=== PATIENT | female | born 1955 | race Caucasian/White ===

== ENCOUNTER 2017-04-26 10:26 | Emergency (ER) | payer MEDICARE, OTHER ==
[2017-04-26 10:34] VITALS: BMI 28.1
--- NOTE | 2017-04-26 11:23 | PDOC ---
History of Present Illness - General Chief Complaint: Pain, Acute Stated Complaint: Flank pain, nausea, possible kidney stones Time Seen by Provider: 04/26/17 10:48 - History of Present Illness Initial Comments: 04/26/17 11:15 Pt is a 62 y/o F with PMH kidney stones (Lithotripsy and L ureteral stent 10/16/16 ), who presents with left flank pain. Pain began at 2am today, is constant, pressure-like, radiates to the anterior pelvis and left leg (tingling in the leg ) and is associated with sweating and chills today. Pt states she's had blood in her urine for 2 weeks. She had an appointment with her allergy doctor today and inteded to ask about the blood, but this morning she developed intense pain prompting her to come to the ED instead. Denies vomiting, diarrhea, chest pain, sob, fever. Last BM this morning. Nonbloody. Other medical history: Asthma, Glaucoma, Depression, paravertebral cyst (MRI at [facility] last month), hysterectomy, sleeve gastrectomy 2014, cholecystectomy, basal cell CA resection from right nose, lipoma resection. Pt saw Dr. Chemo Choi for kidney stones in the past. Past History - Past Medical History Allergies/Adverse Reactions: Allergies Allergy/AdvReac Type Severity Reaction Status Date / Time iodine Allergy Mild Rash Verified 04/26/17 10:34 Penicillins Allergy Difficulty Verified 04/26/17 10:34 Breathing Home Medications: Ambulatory Orders Duloxetine [Cymbalta -] 60 mg PO DAILY 02/18/15 Apremilast [Otezla] 30 mg PO DAILY 04/26/17 Lorazepam [Ativan] 0.5 mg PO PRN 04/26/17 Anemia: No Asthma: Yes Cancer: Yes (SKIN W/ RECONSTRUCTION) Cardiac Disorders: No CVA: No COPD: No CHF: No Dementia: No Diabetes: No GI Disorders: Yes (REFLUX, ABD. PAIN;DIVERTICULOSIS) Disorders: Yes (KIDNEY STONE) HTN: No Hypercholesterolemia: No Kidney Stones: Yes Liver Disease: No Psychiatric Problems: Yes (Depression) Seizures: No Thyroid Disease: No Other medical history: RA, Sleep Apnea,Fibromyalgia - Surgical History Abdominal Surgery: Yes (GASTRIC SLEEVE - 2012) Appendectomy: No Cardiac Surgery: No Cholecystectomy: Yes Lung Surgery: No Neurologic Surgery: No Orthopedic Surgery: No - Suicide/Smoking/Psychosocial Hx Smoking Status: No Smoking History: Never smoked Have you smoked in the past 12 months: No Number of Cigarettes Smoked Daily: 0 Information on smoking cessation initiated: No Hx Alcohol Use: No Drug/Substance Use Hx: No Substance Use Type: None, Prescribed Hx Substance Use Treatment: No Review of Systems - Review of Systems Able to Perform ROS?: Yes Is the patient limited [place] proficient: No Constitutional: Yes: Symptoms Reported, Chills, Diaphoresis. No: Fever, Malaise , Night Sweats HEENTM: Yes: Symptoms Reported. No: Blurred Vision, Ear Discharge, Throat Pain , Throat Swelling Respiratory: Yes: Symptoms reported. No: Cough, Shortness of Breath, Stridor, Wheezing, Productive cough Cardiac (ROS): Yes: Symptoms Reported, Edema (pt states she chronically has swelling in her legs, which has been worked up by her primary doctor). No: Chest Pain ABD/GI: Yes: Symptoms Reported, Nausea. No: Constipated, Diarrhea, Vomiting, Indigestion : Yes: Flank Pain (since 2am), Hematuria (2 weeks). No: Burning, Dysuria, Discharge, Incontinence *Physical Exam - Vital Signs Last Vital Signs Temp Pulse Resp BP Pulse Ox 97.6 F 63 17 125/69 100 04/26/17 10:30 04/26/17 10:30 04/26/17 10:30 04/26/17 10:30 04/26/17 10:30 - Physical Exam General Appearance: Yes: Nourished, Appropriately Dressed, Apparent Distress ( in pain) HEENT: positive: EOMI, GEOFFREY, Normal ENT Inspection, Normal Voice, Symmetrical Neck: positive: Supple. negative: Tender Respiratory/Chest: positive: Lungs Clear, Normal Breath Sounds. negative: Chest Tender, Respiratory Distress Cardiovascular: positive: Regular Rhythm, Regular Rate, S1, S2 Vascular Pulses: Dorsalis-Pedis (R): 2+, Doralis-Pedis (L): 2+ Gastrointestinal/Abdominal: positive: Tender (diffusely, kristopher LUQ), Decreased BS , Rebound, Tenderness. negative: Distended, Guarding, Hernia, Mass, Hepatomegaly, Spleenomegaly Musculoskeletal: positive: Normal Inspection, CVA Tenderness (L). negative: CVA Tenderness (R) Extremity: positive: Normal Inspection, Normal Range of Motion, Pelvis Stable. negative: Swelling, Calf Tenderness, Erythema, Inflammation ED Treatment Course - LABORATORY CBC & Chemistry Diagram: 04/26/17 11:52 04/26/17 11:52 Medical Decision Making - Medical Decision Making 04/26/17 11:27 Pt is a 62 F with PMH kidney stones who presents to ED with intense L flank pain and hematuria. Plan -CBC -CMP -Morphine -UA -U/S abdomen -Tamsulosin -Morphine -NS 04/26/17 12:32 CBC unremarkable 04/26/17 12:40 Pt back from U/S. Still in pain -morphine 04/26/17 13:38 U/S significant for L hydronephrosis, and calculi (0.8cm in renal pelvis, and up to 0.9 in lower pole of kidney). Ao normal caliber. labs significant for alk phos 127. UA pos for blood, ketones, wbcs, rbc 04/26/17 14:49 Pt complaining of epigastric pain -EKG -maalox -famotidine 04/26/17 17:07 Pt is much improved. Stable for discharge *DC/Admit/Observation/Transfer Diagnosis at time of Disposition: Hydronephrosis Qualifiers: Hydronephrosis type: with renal calculous obstruction Qualified Code(s): N13.2 - Hydronephrosis with renal and ureteral calculous obstruction - Discharge Dispostion Disposition: HOME Admit: No - Referrals Referrals: Jimbo Vines MD [Staff Physician] - - Patient Instructions Printed Discharge Instructions: DI for Kidney Stones Additional Instructions: Please make sure you follow up with your Urologist. Please take all your prescription medications as directed. If your symptoms get worse or if you develop new symptoms, please return to the emergency department. - Post Discharge Activity
[2017-04-26] MEDS ORDERED: KETOROLAC TROMETHAMINE 15 MG/ML VIAL IVPUSH ONE (11:30)
[2017-04-26] MEDS ORDERED: SODIUM CHLORIDE 1,000 ML IV STA (11:35)
--- NOTE | 2017-04-26 11:36 | PDOC ---
Attending Attestation - Resident Resident Name: SuziemainorDelta - ED Attending Attestation I have performed the following: I have examined & evaluated the patient, The case was reviewed & discussed with the resident, I agree w/resident's findings & plan, Exceptions are as noted - HPI HPI: 04/26/17 14:33 62y F hx of kidney stones presents with a few days of intermittent L sided flank pain. Pt also endorses mild epgiastric pain and nausea since this morning. no associated fever/chills, hematmeiss, dysuria, sob. pot ntotes her flakn pain is similar to her kidney stones in the past. on exam the pt appeasrs in mild distress due to her discomfort her abd is soft, nontender cardiac exam reveals rrr, no m/r/g suspect kidney stones susuepct her epgiastric discomfort is due to nausea from the kidney stones, but will obtain ekg to screen for acs - Physicial Exam PE: 04/26/17 17:37 see above - Medical Decision Making 04/26/17 17:36 pt feeling improved at discharge will [facility] with return precutions including fever, back pain, persistent vomitin gor other concerns. I discussed the physical exam findings, ancillary test results and final diagnoses with the patient. I answered all of the patient's questions. The patient was satisfied with the care received and felt comfortable with the discharge plan and treatment plan. The patient will call their primary care physician within 24 hours to arrange follow-up and will return to the Emergency Department with any new, persistent or worsening symptoms. Heart Score/ECG Review - ECG Impressions Comment:: 04/26/17 15:16 Twelve-lead EKG was performed and reviewed by me. There is normal sinus rhythm with a normal rate. Rate of 92 The axis is normal. The intervals are normal. There is normal R wave progression There are no ST or T wave abnormalities. Impression: Normal twelve-lead EKG
[2017-04-26] MEDS ORDERED: KETOROLAC TROMETHAMINE 15 MG/ML VIAL ONE (11:38)
[2017-04-26] MEDS ORDERED: ONDANSETRON 4 MG/2 ML VIAL IVPUSH ONE (11:42)
[2017-04-26 12:14] LABS: BASO % 0.4 % (0-2.0); EOS % 0.2 % (0-4.5); HEMATOCRIT 39.1 % (32.4-45.2); HEMOGLOBIN 12.5 GM/dL (10.7-15.3); LYMPH % 8.2 % (8-40); MCH 28.4 pg (25.7-33.7); MEAN CELL VOLUME 88.6 fl (80-96); MEAN PLT VOLUME 7.9 fl (7.5-11.1); MONO % 3.3 % (3.8-10.2); NEUT % 87.9 % (42.8-82.8); PLATELET COUNT 317 K/MM3 (134-434); RBC 4.41 M/mm3 (3.60-5.2); WHITE BLOOD COUNT 7.1 K/mm3 (4.0-10.0)
[2017-04-26 12:29] LABS: URINE APPEARANCE TURBID; URINE BILIRUBIN NEGATIVE (NEGATIVE); URINE BLOOD 3+ (NEGATIVE); URINE COLOR AMBER; URINE GLUCOSE (UA) NEGATIVE (NEGATIVE); URINE KETONE 1+ (NEGATIVE); URINE NITRITE NEGATIVE (NEGATIVE); URINE UROBILINOGEN NEGATIVE mg/dL (0.2-1.0)
[2017-04-26 12:39] LABS: ALBUMIN 3.7 g/dl (3.4-5.0); ANION GAP 10 (8-16); BLOOD UREA NITROGEN 12 mg/dL (7-18); CALCIUM 9.5 mg/dL (8.5-10.1); CHLORIDE 103 mmol/L (98-107); CO2 27 mmol/L (21-32); GLUCOSE,RANDOM 125 mg/dL (74-106); POTASSIUM 4.4 mmol/L (3.5-5.1); SODIUM 140 mmol/L (136-145)
[2017-04-26] MEDS ORDERED: morphine CARPU-JECT 4 MG/1 ML DISP.SYRIN IVPUSH ONE (12:39)
[2017-04-26 12:42] LABS: ALK PHOS 127 U/L (45-117); BILIRUBIN,TOTAL 0.7 mg/dL (0.2-1.0); CREATININE 0.7 mg/dL (0.55-1.02); SGOT/AST 23 U/L (15-37); SGPT/ALT 33 U/L (12-78)
[2017-04-26 12:44] LABS: URINE LEUK ESTERASE 1+ (NEGATIVE); URINE PROTEIN 2+ (NEGATIVE)
[2017-04-26 12:47] LABS: EPI CELLS RARE /HPF (FEW); URINE BACTERIA FEW /hpf (NONE SEEN); URINE MUCUS MANY
[2017-04-26] MEDS ORDERED: morphine CARPU-JECT 10 MG/1 ML DISP.SYRIN ONE (12:49)
[2017-04-26] MEDS ORDERED: MAG HYDROX/AL HYDROX/SIMETH 355 ML ORAL.SUSP PO ONE (14:33)
[2017-04-26] MEDS ORDERED: ONDANSETRON 4 MG/2 ML VIAL IVPB ONE (14:33)
[2017-04-26] MEDS ORDERED: FAMOTIDINE 20 MG/50 ML IVPB 20 MG in PREMIX 50 IVPB ONE (14:33)
[2017-04-26] MEDS ORDERED: ONDANSETRON 4 MG/2 ML VIAL ONE (14:52)
[2017-04-26] MEDS ORDERED: MAG HYDROX/AL HYDROX/SIMETH 30 ML UNIT-DOSE CUP ONE (14:52)
[2017-04-26] MEDS ORDERED: FAMOTIDINE 20 MG/50 ML IVPB 20 MG/50 ML MG IVPB ONE (14:52)
[2017-04-26 17:29] VITALS: BP 137/75; PULSE 89; TEMP 98.9
--- NOTE | 2017-04-27 09:21 | EKG ---
Test Reason : Blood Pressure : / mmHG Vent. Rate : 092 BPM Atrial Rate : 092 BPM P-R Int : 202 ms QRS Dur : 070 ms QT Int : 354 ms P-R-T Axes : 046 006 018 degrees QTc Int : 437 ms NORMAL SINUS RHYTHM NORMAL ECG WHEN COMPARED WITH ECG OF 13-JUL-2011 15:22, NO SIGNIFICANT CHANGE WAS FOUND Confirmed by MIKE FORBES MD ([id number]) on 04/27/2017 9:21:04 AM Referred By: Confirmed By:MIKE FORBES MD
== END 2017-04-26 17:56 | disposition home or self-care (01) ==
LOC: JER 10:26
PROC: 3E033NZ Introduction of Analgesics, Hypnotics, Sedatives into Peripheral Vein, Percutaneous Approach (ICD-10-PCS; principal; 2017-04-26)
PROC: 3E033NZ Introduction of Analgesics, Hypnotics, Sedatives into Peripheral Vein, Percutaneous Approach (ICD-10-PCS; 2017-04-26)
PROC: 3E0333Z Introduction of Anti-inflammatory into Peripheral Vein, Percutaneous Approach (ICD-10-PCS; 2017-04-26)
PROC: 3E033GC Introduction of Other Therapeutic Substance into Peripheral Vein, Percutaneous Approach (ICD-10-PCS; 2017-04-26)
PROC: 3E033GC Introduction of Other Therapeutic Substance into Peripheral Vein, Percutaneous Approach (ICD-10-PCS; 2017-04-26)
DX: N13.2 Hydronephrosis with renal and ureteral calculous obstruction (principal); Z87.442 Personal history of urinary calculi
CPT/HCPCS: 36415; 76775-TC; 80053; 81003; 81015; 85025; 93005; 93010; 96365; 96375; 96376; 99283-25

== ENCOUNTER 2017-05-17 09:51 | Day surgery (SDC) | payer MEDICARE, OTHER ==
[2017-05-09 11:07] VITALS: BMI 28.5
--- NOTE | 2017-05-17 12:42 | HP ---
History & Physical Update - History History: No Change - Physical Physical: No Change - Assessment Assessment: No Change - Plan Plan: No Change
[2017-05-17] MEDS ORDERED: ACETAMINOPHEN 1000 MG/100 ML VIAL (NON FORMULARY) IVPB ONE (12:43)
[2017-05-17] MEDS ORDERED: DEXTROSE 5%-0.45% SALINE 1,000 ML IV SCH (12:45)
[2017-05-17] MEDS ORDERED: IBUPROFEN 800 MG/8 ML IJ IVPB SCH (12:45)
[2017-05-17] MEDS ORDERED: LEVOFLOXACIN 500 MG IVPB 500 MG/100 ML BAG IVPB ONE (12:51)
[2017-05-17] MEDS ORDERED: MIDAZOLAM HCL 2 MG/2 ML SINGLE DOSE VIAL ONE (12:51)
[2017-05-17] MEDS ORDERED: LEVOFLOXACIN 500 MG PREMIX BAG IVPB ONE (12:54)
[2017-05-17] MEDS ORDERED: oxyCODONE HCL 5 MG TABLET PO PRN (13:51)
[2017-05-17] MEDS ORDERED: ONDANSETRON 4 MG/2 ML VIAL IVPUSH PRN (13:51)
[2017-05-17] MEDS ORDERED: PROMETHAZINE HCL 25 MG/1 ML VIAL IVPUSH PRN (13:51)
[2017-05-17] MEDS ORDERED: LACTATED RINGERS SOLUTION 1,000 ML IV SCH (14:00)
[2017-05-17] MEDS ORDERED: ONDANSETRON 4 MG/2 ML VIAL ONE (14:20)
--- NOTE | 2017-05-17 14:55 | OP ---
DATE OF OPERATION: 05/17/2017 PREOPERATIVE DIAGNOSIS: Left renal pelvis calculi. POSTOPERATIVE DIAGNOSIS: Left renal pelvis calculi. PROCEDURE: Left extracorporeal shock wave lithotripsy. ANESTHESIA: General. ANESTHESIOLOGIST: Dr. Chambers SURGEON: Jimbo Vines M.D. FINDINGS: Stones in the renal pelvis on the left side. ESTIMATED BLOOD LOSS: None. PREOPERATIVE INDICATIONS: The patient is a 62-year-old female who has kidney stones. She comes for ESWL. OPERATION: Patient was brought to the OR and placed on the table in the supine position. The stones were visualized on fluoroscopy. IV sedation and IV antibiotics were given. Timeout was performed. Twenty-five hundred shocks were applied to the stones under fluoroscopic guidance. Patient tolerated the procedure well. She was awoken up. JIMBO VINES M.D. [id number]
[2017-05-17 15:37] VITALS: TEMP 98.1
[2017-05-17] MEDS ORDERED: PROMETHAZINE HCL 25 MG/1 ML VIAL ONE (16:03)
[2017-05-17 17:11] VITALS: BP 131/61; PULSE 81
== END 2017-05-17 17:19 | disposition home or self-care (01) ==
LOC: JASU-SURG 09:51
PROVIDERS: ATTEND Urology
PROC: 0TF4XZZ Fragmentation in Left Kidney Pelvis, External Approach (ICD-10-PCS; principal; 2017-05-17 12:00)
DX: N20.0 Calculus of kidney (principal)
CPT/HCPCS: 94760

== ENCOUNTER 2018-04-13 11:18 | Day surgery (SDC) | payer MEDICARE, OTHER ==
[2018-04-12 17:35] VITALS: BMI 28.6
--- NOTE | 2018-04-13 13:57 | HP ---
History & Physical Update - History History: No Change - Physical Physical: No Change - Assessment Assessment: No Change - Plan Plan: No Change
[2018-04-13] MEDS ORDERED: DEXTROSE 5%-0.45% SALINE 1,000 ML IV SCH (14:00)
[2018-04-13] MEDS ORDERED: IBUPROFEN 800 MG/8 ML IJ IVPB SCH (14:00)
[2018-04-13] MEDS ORDERED: PROPOFOL 20 ML ONE ×2 (14:06)
[2018-04-13] MEDS ORDERED: MIDAZOLAM HCL 2 MG/2 ML SINGLE DOSE VIAL ONE (14:06)
[2018-04-13] MEDS ORDERED: LIDOCAINE HCL/PF 2% SDV 5ML VIAL ONE (14:12)
[2018-04-13] MEDS ORDERED: ACETAMINOPHEN 1000 MG/100 ML VIAL (NON FORMULARY) IVPB ONE (14:15)
[2018-04-13] MEDS ORDERED: SODIUM CHLORIDE 0.9% P/F 10 ML VIAL IJ ONE (14:17)
[2018-04-13] MEDS ORDERED: ceFAZolin SODIUM 1 GM VIAL ONE (14:17)
[2018-04-13] MEDS ORDERED: DEXAMETHASONE SOD PHOSPHATE 4 MG/1 ML VIAL ONE (14:20)
[2018-04-13] MEDS ORDERED: ONDANSETRON 4 MG/2 ML VIAL IVPUSH PRN (15:08)
[2018-04-13] MEDS ORDERED: oxyCODONE HCL 5 MG TABLET PO PRN (15:08)
[2018-04-13] MEDS ORDERED: PROMETHAZINE HCL 25 MG/1 ML VIAL IVPUSH PRN (15:08)
[2018-04-13] MEDS ORDERED: LACTATED RINGERS SOLUTION 1,000 ML IV SCH (15:15)
[2018-04-13] MEDS ORDERED: ACETAMINOPHEN INJECTION 100 ML IVPB ONE (15:30)
[2018-04-13 17:44] VITALS: BP 136/74; PULSE 70; TEMP 98
--- NOTE | 2018-04-14 22:01 | OP ---
DATE OF OPERATION: 04/13/2018 PREOPERATIVE DIAGNOSIS: Left renal calculus. POSTOPERATIVE DIAGNOSIS: Left renal calculus. PROCEDURE: Left ureteroscopic laser lithotripsy and left ureteral stent placement. ANESTHESIA: General. SURGEON: Jimbo Vines MD PREOPERATIVE INDICATIONS: The patient is a 63-year-old female with left renal calculus. She comes to the OR for laser lithotripsy. OPERATION: The patient was brought to the OR, placed on the table in the supine position, given general anesthesia and IV antibiotics, and placed in the modified lithotomy position. The groin was prepped and draped sterilely. Cystoscopy was performed. The left UO was visualized. The wire was placed up in the left kidney. Then, a 10-Occitan dual-lumen catheter was used, and a second wire was placed into the left kidney as well. Over the second wire, a flexible ureteroscope was passed into the kidney under fluoroscopic guidance. Two large stones were seen, one in the mid pole and one in the lower pole of the kidney. Using the holmium laser fiber, these stones were broken up into small pieces of sand. No other large stones were seen at the end of the procedure. The course of the ureter was also examined. No stones were seen in the course of the ureter. Over the remaining wire, a 6 x 24 double-J ureteral stent was left in place. The bladder was emptied. The patient was woken up. John Paul [id number]
== END 2018-04-13 17:35 | disposition home or self-care (01) ==
LOC: JASU-SURG 11:18
PROVIDERS: ATTEND Urology
PROC: 0TF48ZZ Fragmentation in Left Kidney Pelvis, Via Natural or Artificial Opening Endoscopic (ICD-10-PCS; principal; 2018-04-13 14:30)
PROC: 0T778DZ Dilation of Left Ureter with Intraluminal Device, Via Natural or Artificial Opening Endoscopic (ICD-10-PCS; 2018-04-13 14:30)
DX: N20.0 Calculus of kidney (principal)
CPT/HCPCS: 76000-TC-FY; 94760; J0131

== ENCOUNTER → 2018-12-13 | Outpatient (CLI) | payer MEDICARE, OTHER | LOC: YHH 13:28 ==

== ENCOUNTER 2021-12-10 14:41 | Emergency (ER) | payer MEDICARE, OTHER ==
[2021-12-10 14:46] VITALS: BP 143/91; PULSE 91; RESP 18; TEMP 97.8; BMI 31.6
[2021-12-10] MEDS ORDERED: DEXAMETHASONE SOD PHOSPHATE 10 MG/1 ML VIAL IM ONE (16:07)
[2021-12-10] MEDS ORDERED: FAMOTIDINE 20 MG TABLET PO ONE (16:07)
[2021-12-10] MEDS ORDERED: FAMOTIDINE 20 MG TABLET ONE (16:11)
[2021-12-10] MEDS ORDERED: DEXAMETHASONE SOD PHOSPHATE 10 MG/1 ML VIAL ONE (16:11)
== END 2021-12-10 17:36 | disposition home or self-care (01) ==
LOC: JER 14:41
PROC: 3E0233Z Introduction of Anti-inflammatory into Muscle, Percutaneous Approach (ICD-10-PCS; principal; 2021-12-10)
DX: R21 Rash and other nonspecific skin eruption (principal)
CPT/HCPCS: 96372; 99284-25; J1100

== ENCOUNTER 2023-12-14 04:30 | Day surgery (SDC) | payer OTHER ==
[2023-12-13 10:50] VITALS: BMI 31.4
[2023-12-14] MEDS ORDERED: LIDOCAINE HCL/PF 2% SDV 5ML VIAL ONE (09:40)
[2023-12-14] MEDS ORDERED: ONDANSETRON 4 MG/2 ML VIAL ONE (09:40)
[2023-12-14] MEDS ORDERED: DEXAMETHASONE SOD PHOSPHATE 4 MG/1 ML VIAL ONE (09:40)
[2023-12-14] MEDS ORDERED: ROCURONIUM BROMIDE 50 MG/5 ML SYRINGE ONE (09:41)
[2023-12-14] MEDS ORDERED: MIDAZOLAM HCL 2 MG/2 ML SINGLE DOSE VIAL ONE (09:41)
[2023-12-14] MEDS ORDERED: SUCCINYLCHOLINE CHLORIDE 200 MG/10 ML SYRINGE ONE (09:41)
[2023-12-14] MEDS ORDERED: PROPOFOL 60 ML ONE (09:41)
[2023-12-14] MEDS ORDERED: ONDANSETRON 4 MG/2 ML VIAL IVPUSH PRN (11:28)
[2023-12-14] MEDS: ceFAZolin SODIUM 1 GM VIAL IVPB ONE ×2 (12:04)
[2023-12-14] MEDS: LACTATED RINGERS SOLUTION 1,000 ML IV SCH (13:43)
[2023-12-14] MEDS ORDERED: KETOROLAC TROMETHAMINE 30 MG/1 ML VIAL IVPUSH ONE (14:05)
[2023-12-14] MEDS ORDERED: ACETAMINOPHEN 1000 MG/100 ML BAG IVPB ONE (14:05)
[2023-12-14] MEDS ORDERED: KETOROLAC TROMETHAMINE 30 MG/1 ML VIAL ONE (14:07)
[2023-12-14] MEDS: KETOROLAC TROMETHAMINE 30 MG/1 ML VIAL IVPUSH ONE (14:10)
[2023-12-14 14:51] VITALS: BP 143/74; PULSE 57; RESP 20; TEMP 97.8
[2023-12-14] MEDS ORDERED: oxyCODONE HCL 5 MG TABLET ONE (15:02)
[2023-12-14] MEDS: oxyCODONE HCL 5 MG TABLET PO PRN (15:05)
== END 2023-12-14 15:57 | disposition home or self-care (01) ==
LOC: JASU-SURG 04:30
PROVIDERS: ATTEND Urology
PROC: 0TC78ZZ Extirpation of Matter from Left Ureter, Via Natural or Artificial Opening Endoscopic (ICD-10-PCS; principal; 2023-12-14 11:30)
DX: N20.2 Calculus of kidney with calculus of ureter (principal)
CPT/HCPCS: 76000-TC-FY; 82962; 94760; C1758; C2617